=== PATIENT | male | born 1965 | race Caucasian/White ===

== ENCOUNTER → 2016-12-26 | Outpatient (CLI) | payer BC ==
[2016-12-26 18:06] LABS: ALT/SGPT 40 U/L (12-78); AST/SGOT 19 U/L (15-37); BLOOD UREA NITROGEN 18 mg/dl (7-18); BUN/CREATININE RATIO 16.1 (10-20); CALCIUM 8.7 mg/dl (8.5-10.1); CARBON DIOXIDE 29 mmol/L (21-32); CHLORIDE 108 mmol/L (98-107); GLUCOSE 80 mg/dl (70-99); POTASSIUM 4.2 mmol/L (3.5-5.1); SODIUM 142 mmol/L (136-145)
[2016-12-26 18:16] LABS: ALB/GLOB RATIO 1.2 (0.9-2); ALKALINE PHOSPHATASE 78 U/L (45-117); CHOLESTEROL 157 mg/dl (0-200); CHOLESTEROL/HDL RATIO 4.8; HDL CHOLESTEROL 33 mg/dl; LDL CHOLESTEROL CALCULATED 87 mg/dl; TRIGLYCERIDES 186 mg/dl (0-150); VERY LOW DENSITY LIPOPROT CALC 37 mg/dl
[2016-12-26 18:18] LABS: BASO % 0.7 %; BASO ABS # 0.06 K/uL (0-0.2); COMPLETE YES; EOS % 1.8 %; HEMATOCRIT 43.7 % (42-52); IG% 0.2 %; LYMPH % 16.6 %; LYMPH ABS # 1.45 K/uL (1.2-3.4); MEAN CELL VOLUME 89.2 fL (80-100); MEAN CORPUSCULAR HEMOGLOBIN 31.2 pg (25-34); MEAN PLATELET VOLUME 13.7 fL (7.4-10.4); MONO % 8.9 %; NEUT % 71.8 %; PLATELET COUNT 98 K/uL (130-400); PLT ESTIMATE DECREASED; WHITE BLOOD COUNT 8.74 K/uL (4.8-10.8)
== END | disposition home or self-care (01) ==
LOC: C.LABMFLN 07:33
PROVIDERS: ATTEND Family Medicine
DX: I10 Essential (primary) hypertension (principal); E78.5 Hyperlipidemia, unspecified

== ENCOUNTER → 2017-01-23 | Outpatient (CLI) | payer BC ==
[2017-01-23 18:15] LABS: BASO % 0.7 %; BASO ABS # 0.06 K/uL (0-0.2); COMPLETE YES; EOS % 4.4 %; HEMATOCRIT 43.3 % (42-52); IG% 0.3 %; LARGE PLATELETS 2+; LYMPH % 17.3 %; LYMPH ABS # 1.51 K/uL (1.2-3.4); MEAN CELL VOLUME 87.7 fL (80-100); MEAN CORPUSCULAR HEMOGLOBIN 30.6 pg (25-34); MEAN CORPUSCULAR HGB CONC 34.9 g/dl (32-36); MEAN PLATELET VOLUME 13.4 fL (7.4-10.4); MONO % 9.9 %; NEUT % 67.4 %; PLATELET COUNT 88 K/uL (130-400); PLT ESTIMATE DECREASED; RED BLOOD COUNT 4.94 M/uL (4.7-6.1); WHITE BLOOD COUNT 8.71 K/uL (4.8-10.8)
== END | disposition home or self-care (01) ==
LOC: C.LABMFLN 15:53
PROVIDERS: ATTEND Family Medicine
DX: D69.6 Thrombocytopenia, unspecified (principal)

== ENCOUNTER → 2018-01-06 | Outpatient (CLI) | payer BC ==
[2018-01-06 12:36] LABS: BASO % 0.9 %; BASO ABS # 0.07 K/uL (0-0.2); EOS % 3.2 %; EOS ABS # 0.25 K/uL (0-0.5); HEMATOCRIT 45.3 % (42-52); HEMOGLOBIN 15.5 g/dL (14.0-18.0); LYMPH % 22.3 %; LYMPH ABS # 1.73 K/uL (1.2-3.4); MEAN CELL VOLUME 90.8 fL (80-100); MEAN CORPUSCULAR HEMOGLOBIN 31.1 pg (25-34); MEAN CORPUSCULAR HGB CONC 34.2 g/dl (32-36); MEAN PLATELET VOLUME 12.2 fL (7.4-10.4); MONO % 9.8 %; MONO ABS # 0.76 K/uL (0.11-0.59); NEUT % 62.5 %; NEUT ABS # 4.86 K/uL (1.4-6.5); PLATELET COUNT 133 K/uL (130-400); RED CELL DISTRIBUTION WIDTH CV 14.2 % (11.5-14.5); RED CELL DISTRIBUTION WIDTH SD 47.1 fL (36.4-46.3); WHITE BLOOD COUNT 7.77 K/uL (4.8-10.8)
== END | disposition home or self-care (01) ==
LOC: C.LABMFLN 08:19
PROVIDERS: ATTEND Family Medicine
DX: D69.6 Thrombocytopenia, unspecified (principal); Z12.5 Encounter for screening for malignant neoplasm of prostate

== ENCOUNTER → 2018-05-12 | Outpatient (CLI) | payer BC ==
[2018-05-12 14:00] LABS: ALBUMIN 3.7 gm/dl (3.4-5.0); ALKALINE PHOSPHATASE 52 U/L (45-117); ALT/SGPT 38 U/L (12-78); AST/SGOT 25 U/L (15-37); BLOOD UREA NITROGEN 16 mg/dl (7-18); CALCIUM 8.4 mg/dl (8.5-10.1); CARBON DIOXIDE 23 mmol/L (21-32); CHOLESTEROL 149 mg/dl (0-200); CREATININE 0.91 mg/dl (0.60-1.40); GLUCOSE 105 mg/dl (70-99); LDL CHOLESTEROL CALCULATED 64 mg/dl; POTASSIUM 4.4 mmol/L (3.5-5.1); SODIUM 138 mmol/L (136-145); TOTAL PROTEIN 6.7 gm/dl (6.4-8.2)
[2018-05-12 18:24] LABS: HEMATOCRIT 47.4 % (42-52); HEMOGLOBIN 16.2 g/dL (14.0-18.0); MEAN CELL VOLUME 89.6 fL (80-100); MEAN CORPUSCULAR HEMOGLOBIN 30.6 pg (25-34); MEAN CORPUSCULAR HGB CONC 34.2 g/dl (32-36); PLATELET COUNT 64 K/uL (130-400); RED CELL DISTRIBUTION WIDTH CV 13.3 % (11.5-14.5); RED CELL DISTRIBUTION WIDTH SD 43.7 fL (36.4-46.3); WHITE BLOOD COUNT 6.73 K/uL (4.8-10.8)
== END | disposition home or self-care (01) ==
LOC: C.LABMFLN 09:32
PROVIDERS: ATTEND Family Medicine
DX: M79.641 Pain in right hand (principal); E78.5 Hyperlipidemia, unspecified

== ENCOUNTER → 2018-05-21 | Outpatient (CLI) | payer BC ==
[2018-05-21 09:40] LABS: MEAN CORPUSCULAR HGB CONC 34.1 g/dl (32-36)
[2018-05-21 10:03] LABS: HEMATOCRIT 45.5 % (42-52); HEMOGLOBIN 15.5 g/dL (14.0-18.0); MEAN CORPUSCULAR HEMOGLOBIN 30.3 pg (25-34); RED CELL DISTRIBUTION WIDTH CV 13.3 % (11.5-14.5); RED CELL DISTRIBUTION WIDTH SD 43.4 fL (36.4-46.3); WHITE BLOOD COUNT 5.64 K/uL (4.8-10.8)
[2018-05-21 10:14] LABS: ALKALINE PHOSPHATASE 56 U/L (45-117); ALT/SGPT 37 U/L (12-78); AST/SGOT 24 U/L (15-37); CREATININE 0.95 mg/dl (0.60-1.40); TOTAL PROTEIN 7.1 gm/dl (6.4-8.2); TRANSFERRIN 216 mg/dl (200-360)
[2018-05-21 10:18] LABS: PLATELET COUNT 58 K/uL (130-400)
[2018-05-21 10:19] LABS: BASO % 1.1 %; BASO ABS # 0.06 K/uL (0-0.2); EOS % 6.9 %; EOS ABS # 0.39 K/uL (0-0.5); IG# 0.03 K/uL (0.00-0.02); LYMPH % 13.5 %; LYMPH ABS # 0.76 K/uL (1.2-3.4); MONO % 9.6 %; MONO ABS # 0.54 K/uL (0.11-0.59); NEUT % 68.4 %; NEUT ABS # 3.86 K/uL (1.4-6.5)
[2018-05-25 22:40] LABS: ANA SCREEN TC 249X NEGATIVE (NEGATIVE); ANTI-SS-A <1.0 NEG AI (<1.0 NEG); ANTI-SS-B <1.0 NEG AI (<1.0 NEG); COMPLEMENT C4** TC 44982E 23 MG/DL (15-53); PARVOVIRUS IgM INDEX 0.1 (<0.9)
== END | disposition home or self-care (01) ==
LOC: C.LAB1850 08:43
PROVIDERS: ATTEND Internal Medicine Rheumatology
DX: M79.641 Pain in right hand (principal); M79.642 Pain in left hand; Z15.89 Genetic susceptibility to other disease; M79.89 Other specified soft tissue disorders; M25.439 Effusion, unspecified wrist

== ENCOUNTER → 2018-05-26 | Outpatient (CLI) | payer BC ==
--- NOTE | 2018-05-26 15:32 | DIAGNOSTIC IMAGING REPORT ---
BONE SCAN WHOLE BODY HISTORY: Pain M79.641 Bilateral hand painM79.642 HLA-B27 [id number] Hand s RADIOTRACER: 27.1 mCi Tc-99m MDP STUDY/IMAGES: Planar anterior and posterior whole body imaging was performed 3 hours following the intravenous administration of radiotracer. COMPARISON: None. FINDINGS: Mild generalized degenerative activity involving the shoulders, knees, as well as ankles and feet. Bilateral renal activity is present. Mild degenerative activity of the bony structures of the carpal region as well as interphalangeal joint region of the hands bilaterally. IMPRESSION: 1. Moderate degenerative activity of the interphalangeal and intercarpal joints of the hands and wrists bilaterally. 2. Mild degenerative activity of the major joints of the shoulders knees and ankles. 3. Otherwise negative bone scan. The above report was generated using voice recognition software. It may contain grammatical, syntax or spelling errors. Electronically signed by: Darrian Villasenor M.D. 05/26/2018 3:30 PM Dictated Date/Time: 05/26/2018 3:29 PM
--- NOTE | 2018-05-27 13:44 | DIAGNOSTIC IMAGING REPORT ---
MRI OF THE RIGHT WRIST WITHOUT CONTRAST CLINICAL HISTORY: Right wrist pain and swelling. HLA-B27 positive. COMPARISON STUDY: No previous studies for comparison. TECHNIQUE: Utilizing a 1.5 Susan magnet and dedicated coil, multiplanar, multiecho imaging of the right wrist was performed without intravenous or intra-articular contrast. Patient was unable to complete exam due to significant pain. FINDINGS: A 9 mm T2 hyperintense lesion within the third metacarpal head is noted. This is likely benign. This may reflect an an enchondroma. No fracture is present. There is no evidence for osteomyelitis within visualized skeletal structures. There are several T2 hyperintense lesions within the carpal bones and the distal right radius. These favor cysts. Erosions could appear similar although are considered less likely. There is nonspecific subcutaneous edema of the right wrist and hand. No well-defined fluid collection is identified on this unenhanced examination. Evaluation is suboptimal as the patient was unable to tolerate the entire exam. Axial images were not obtained. Therefore, the tendons are suboptimally assessed. There is slight increased fluid within the distal radioulnar joint. No definite tear of the TFCC is noted. Scapholunate ligament appears intact. IMPRESSION: 1. No fracture or evidence of osteomyelitis within the right wrist. 2. Diffuse subcutaneous edema of the right wrist and hand, a nonspecific finding. No well-defined fluid collection to suggest abscess on this unenhanced exam. 3. Study mildly compromised as patient unable to complete exam due to pain. 4. Multiple T2 hyperintense foci within the distal right radius and the carpal bones which favor cysts. Erosions could appear similar although are considered less likely. Electronically signed by: Javy Glynn M.D. 05/27/2018 1:43 PM Dictated Date/Time: 05/26/2018 9:42 PM
== END | disposition home or self-care (01) ==
LOC: C.NUCL 11:36
PROVIDERS: ATTEND Internal Medicine Rheumatology
DX: M79.642 Pain in left hand (principal); M79.641 Pain in right hand; M79.89 Other specified soft tissue disorders; Z15.89 Genetic susceptibility to other disease